=== PATIENT | male | born 2005 | race Caucasian/White ===

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

== ENCOUNTER 2024-09-15 06:07 | Emergency (ER) | payer BC ==
--- NOTE | 2024-09-15 07:01 | XR ---
EXAMINATION TYPE: XR knee complete LT DATE OF EXAM: 09/15/2024 6:39 AM INDICATION: Patient age:Male; 19 years old; Reason for study: pain; PHH. pain COMPARISON: None. TECHNIQUE: The Left knee(s) was examined in Frontal, lateral and oblique projections. FINDINGS: No evidence of any acute osseous pathology, soft tissue swelling, or joint effusion is no jose luis. IMPRESSION: No acute osseous pathology. Consider further evaluation with MRI if there is continued clinical ashlie rn. [facility], , 09/15/2024 6:59 AM
--- NOTE | 2024-09-15 07:36 | ED ---
Extremity Problem HPI - General Chief complaint: Extremity Problem,Nontraumatic Stated complaint: left knee pain Time Seen by Provider: 09/15/24 06:16 Source: patient, RN notes reviewed Mode of arrival: ambulatory Limitations: no limitations - History of Present Illness Initial comments: 19-year-old male presents emergency department with chief complaint of left knee pain. Patient states been having increasing symptoms of the last month. Patient states that he does a lot of zenon and states it is painful when he is kneeling on it. Patient states especially when his leg is stretched underneath his butt. Patient states there is some swelling. No paresthesias states sometimes gives out on him.. Patient denies any other associated symptoms. - Related Data Previous Rx's Medication Instructions Recorded Ibuprofen [Motrin] 600 mg PO Q8HR PRN #20 tab 09/04/21 Acetaminophen Tab [Tylenol] 650 mg PO Q6H #30 tab 09/19/21 Docusate [Colace] 100 mg PO BID #20 capsule 09/19/21 Ibuprofen [Motrin] 600 mg PO Q6HR PRN #40 tab 09/19/21 oxyCODONE HCL [OxyIR] 5 mg PO Q6H PRN 3 Days #10 tab 09/19/21 predniSONE 50 mg PO DAILY #5 tab 09/15/24 Allergies Allergy/AdvReac Type Severity Reaction Status Date / Time No Known Allergies Allergy Verified 09/15/24 06:14 Review of Systems ROS Statement: Those systems with pertinent positive or pertinent negative responses have been documented in the HPI. ROS Other: All systems not noted in ROS Statement are negative. Past Medical History Past Medical History: No Reported History Additional Past Medical History / Comment(s): pilonidal cyst,hypoglycemic History of Any Multi-Drug Resistant Organisms: None Reported Past Surgical History: No Surgical Hx Reported Past Anesthesia/Blood Transfusion Reactions: No Reported Reaction Additional Past Anesthesia/Blood Transfusion Reaction / Comment(s): no hx of anesthesia or blood transfusion Past Psychological History: No Psychological Hx Reported Smoking Status: Never smoker Past Alcohol Use History: Occasional Past Drug Use History: None Reported - Past Family History Mother Family Medical History: No Reported History General Exam Limitations: no limitations General appearance: alert, in no apparent distress Head exam: Present: atraumatic, normocephalic, normal inspection Eye exam: Present: normal appearance, PERRL, EOMI. Absent: scleral icterus, conjunctival injection, periorbital swelling ENT exam: Present: normal exam, mucous membranes moist Neck exam: Present: normal inspection, full ROM. Absent: tenderness, meningismus, lymphadenopathy Respiratory exam: Present: normal lung sounds bilaterally. Absent: respiratory distress, wheezes, rales, rhonchi, stridor Cardiovascular Exam: Present: regular rate, normal rhythm, normal heart sounds. Absent: systolic murmur, diastolic murmur, rubs, gallop, clicks Extremities exam: Present: other (Knee there is moderate anterior swelling, no erythema neurovascular intact no laxity) Course Vital Signs 09/15/24 06:12 Temperature 98.3 F Pulse Rate 77 Respiratory 18 Rate Blood Pressure 147/90 O2 Sat by Pulse 100 Oximetry Medical Decision Making - Medical Decision Making Was pt. sent in by a medical professional or institution (, PA, PMP, urgent care, hospital, or penitentiary...) When possible be specific @ -No Did you speak to anyone other than the patient for history (EMS, parent, family, police, friend...)? What history was obtained from this source @ -No Did you review nursing and triage notes (agree or disagree)? Why? @ -I reviewed and agree with nursing and triage notes Were old charts reviewed (outside hosp., previous admission, EMS record, old EKG, old radiological studies, urgent care reports/EKG's, penitentiary records)? Report findings @ -No old charts were reviewed Differential Diagnosis (chest pain, altered mental status, abdominal pain women, abdominal pain men, vaginal bleeding, weakness, fever, dyspnea, syncope, headache, dizziness, GI bleed, back pain, seizure, CVA, palpatations, mental health, musculoskeletal)? @ -Bursitis, knee sprain, osteoarthritis, leg fracture EKG interpreted by me (3pts min.). @ -None X-rays interpreted by me (1pt min.). @ -@Her left knee shows no acute osseous abnormality CT interpreted by me (1pt min.). @ -None done U/S interpreted by me (1pt. min.). @ -None done What testing was considered but not performed or refused? (CT, X-rays, U/S, labs)? Why? @ -None What meds were considered but not given or refused? Why? @ -None Did you discuss the management of the patient with other professionals (professionals i.e. , PA, PMP, lab, RT, psych nurse, social sciences instructor, delicatessen manager, teacher, submarine advisory team watch officer, case management associate)? Give summary @ -No Was smoking cessation discussed for >3mins.? @ -No Was critical care preformed (if so, how long)? @ -No Were there social determinants of health that impacted care today? How? (Homelessness, low income, unemployed, alcoholism, drug addiction, transportation, low edu. Level, literacy, decrease access to med. care, prison, rehab)? @ -No Was there de-escalation of care discussed even if they declined (Discuss DNR or withdrawal of care, Hospice)? DNR status @ -No What co-morbidities impacted this encounter? (DM, HTN, Smoking, COPD, CAD, Cancer, CVA, ARF, Chemo, Hep., AIDS, mental health diagnosis, sleep apnea, morbid obesity)? @ -None Was patient admitted / discharged? Hospital course, mention meds given and route, prescriptions, significant lab abnormalities, going to OR and other pertinent info. @ -Discharge patient had ongoing left knee pain this more likely related to bursitis. Patient will be discharged with follow-up with orthopedics return parameters discussed. Undiagnosed new problem with uncertain prognosis? @ -No Drug Therapy requiring intensive monitoring for toxicity (Heparin, Nitro, Insulin, Cardizem)? @ -No Were any procedures done? @ -No Diagnosis/symptom? @ -Knee pain, bursitis Acute, or Chronic, or Acute on Chronic? @Acute Uncomplicated (without systemic symptoms) or Complicated (systemic symptoms)? @ -[Complicated Side effects of treatment? @ -No Exacerbation, Progression, or Severe Exacerbation? @ -No Poses a threat to life or bodily function? How? (Chest pain, [place], [place], pneumonia, PE, COPD, DKA, ARF, appy, cholecystitis, CVA, Diverticulitis, Homicidal, Suicidal, threat to staff... and all critical care pts) @ -No Disposition Clinical Impression: Prepatellar bursitis, left knee, Left knee pain Disposition: HOME SELF-CARE Condition: Stable Instructions (If sedation given, give patient instructions): Knee Pain (ED), Swollen Knee Joint (ED) Additional Instructions: Please return to the Emergency Department if symptoms worsen or any other concerns. Prescriptions: predniSONE 50 mg PO DAILY #5 tab Is patient prescribed a controlled substance at d/c from ED?: No Referrals: None,Stated [Primary Care Provider] - 1-2 days Oz Tidwell DO [Doctor of Osteopathic Medicine] - 1-2 days Time of Disposition: 07:36
[2024-09-15 07:53] VITALS: BP 145/88; PULSE 82; RESP 16; TEMP 98.1
== END 2024-09-15 08:20 | disposition home or self-care (01) ==
LOC: EC 06:07
DX: M70.42 Prepatellar bursitis, left knee (principal)
CPT/HCPCS: 99283